=== PATIENT | male | born 1980 | race Caucasian/White ===

== ENCOUNTER 2017-03-18 14:22 | Emergency (ER) | payer SELFPAY ==
[~2017-03-18] VITALS: Ht 172.7 cm; Wt 97.0 kg
[2017-03-18 14:24] VITALS: Ht 172.7 cm; Wt 97.0 kg
[2017-03-18] MEDS ORDERED: IBUPROFEN 600 MG TAB PO ONE (15:30)
--- NOTE | 2017-03-18 17:10 | RADRPT ---
PROCEDURE: XR Knee. CLINICAL INDICATION: Right knee pain, trauma TECHNIQUE: 3 images of the right knee are available for review. COMPARISON: None available FINDINGS: There is a moderate sized knee joint effusion. There is slight apparent anterior tibial translation . There is no definite radiographic evidence of fracture, though the tibial plateaus are not well profiled due to patient positioning.. IMPRESSION: 1. Moderate knee joint effusion and apparent slight anterior tibial translation. Consider MRI for fu rther evaluation if there is concern for internal derangement. 2. No radiographic evidence of acute fracture. RPTAT: [facility] .Wilber Choi MD, MD Date Time Electronically viewed and signed by .Wilber Cohi MD, on 03/18/2017 17:10 .K/
[2017-03-18] MEDS ORDERED: IBUP-1542 PO (17:23)
[2017-03-18] MEDS ORDERED: HYDR-906 PO (17:23)
--- NOTE | 2017-03-18 17:29 | ERD ---
ER Documentation Chief Complaint Date/Time DATE: 03/18/17 TIME: 17:27 Chief Complaint RT KNEE PAIN S/P FALL HPI 36-year-old male with right knee pain after falling off a ladder and twisting his right knee ROS All systems reviewed and are negative except as per history of present illness. Medications Home Meds Active Scripts Hydrocodone/Acetaminophen (Page 5-325 Tablet) 1 Each Tablet, 1 TAB PO Q6H Y for PAIN, #12 TAB Prov:SHIN CURIEL MD 03/18/17 Ibuprofen* (Motrin*) 600 Mg Tab, 600 MG PO Q6, #20 TAB Prov:SHIN CURIEL MD 03/18/17 PMhx/Soc Medical and Surgical Hx: pt denies Medical Hx, pt denies Surgical Hx Hx Alcohol Use: No Hx Substance Use: No Hx Tobacco Use: No Smoking Status: Never smoker Physical Exam Vitals Vital Signs Date Time Temp Pulse Resp B/P Pulse Ox O2 Delivery O2 Flow Rate FiO2 03/18/17 14:24 99.6 98 18 157/96 98 Physical Exam Const: [] Alert, not ill-appearing. Head: Atraumatic Eyes: Normal Conjunctiva ENT: Normal External Ears, Nose and Mouth. Neck: Full range of motion..~ No meningismus. Resp: Clear to auscultation bilaterally Cardio: Regular rate and rhythm, no murmurs Abd: Soft, non tender, non distended. Normal bowel sounds Skin: No petechiae or rashes Back: No midline or flank tenderness Ext: No cyanosis, or edema. Tenderness diffusely in the right knee joint with effusion. There is no appreciable deformities. Difficult to assess instability due to pain. No calf swelling or Homans sign per Neur: Awake and alert Psych: Normal Mood and Affect Results 24 hrs Current Medications Medications (Trade) Dose Ordered Sig/Ashley Route PRN Reason Start Time Stop Time Status Last Admin Dose Admin Ibuprofen (Motrin) 600 mg ONCE ONCE PO 03/18/17 15:30 03/18/17 15:31 DC 03/18/17 15:48 Procedures/MDM 18. Subjective complaints-right knee pain after falling off a ladder today. 19. Objective findings- Diffusely tender right knee joint with effusion. No deformities. No class swelling or Homans sign. Difficult to assess Emeterio's or anterior drawer but no gross instability. 19 B. X-ray and laboratory azyoney-C-xcm right knee 3V Interpreted by me : Bones: [No fracture] Joints: [No dislocation] Foreign body: [None]. Impression-effusion with slight anterior tibial translation. 20. Diagnosis-right knee sprain, possible ligament injury 21. Findings and diagnosis consistent with patient's account of injury and onset?-Yes 22. Conditions that will impede or delay the patient's recovery? No 23. Treatment rendered-exam history x-ray. Patient is placed in a right knee immobilizer. Patient is neurovascular intact of the right knee immobilizer. Further treatment required-orthopedic follow-up within the next week per 24. Patient hospitalized?-No 25. Work status- Able to perform usual work-no Patient can return on-March 23 Restrictions-use of knee immobilizer and crutches until cleared by Droctor Departure Diagnosis: Primary Impression: Knee injury Encounter type: initial encounter Laterality: right Qualified Code: S89.91XA - Knee injury, right, initial encounter Condition: Stable Patient Instructions: Knee Pain, Meniscus Injury (Possible), Knee Sprain Referrals: DARIANA ROLLINS MD,[place] Additional Instructions: Va al michaels doctor/ specialista para mas evaluacon en el proximo semana. posiblemente necesita autorizado de michaels doctor primario para specialista. Regresa para fiebre, o mas o nueva simptomas. SHIN CURIEL MD Mar 18, 2017 17:29
[2017-03-18 18:25] VITALS: BP 132/79; PULSE 72; RESP 18; TEMP 98.6
== END 2017-03-18 18:27 | disposition home or self-care (01) ==
LOC: FTE 14:22
DX: S89.91XA Unspecified injury of right lower leg, initial encounter (principal); W11.XXXA Fall on and from ladder, initial encounter; Y92.9 Unspecified place or not applicable
CPT/HCPCS: 73562